=== PATIENT | female | born 1960 | race Caucasian/White ===

== ENCOUNTER → 2022-12-20 | Outpatient (CLI) | payer OTHER | END | disposition home or self-care (01) | LOC: SLP 20:49 | PROVIDERS: ATTEND Internal Medicine | DX: G47.33 Obstructive sleep apnea (adult) (pediatric) (principal) | CPT/HCPCS: 95810 ==

== ENCOUNTER → 2022-12-27 | Outpatient (CLI) | payer OTHER | END | disposition home or self-care (01) | LOC: SLP 20:41 | PROVIDERS: ATTEND Internal Medicine | DX: G47.33 Obstructive sleep apnea (adult) (pediatric) (principal) | CPT/HCPCS: 95811 ==

== ENCOUNTER → 2023-01-27 | Outpatient (CLI) | payer OTHER, MEDICARE | END | disposition home or self-care (01) | LOC: RAH 12:08 | PROVIDERS: ATTEND Internal Medicine | DX: I51.7 Cardiomegaly (principal); Z87.891 Personal history of nicotine dependence | CPT/HCPCS: 71046 ==

== ENCOUNTER → 2023-05-05 | Outpatient (CLI) | payer OTHER, MEDICARE | END | disposition home or self-care (01) | LOC: RAH 08:08 | PROVIDERS: ATTEND Internal Medicine | DX: N28.1 Cyst of kidney, acquired (principal); R19.01 Right upper quadrant abdominal swelling, mass and lump; Z90.49 Acquired absence of other specified parts of digestive tract | CPT/HCPCS: 76700 ==

== ENCOUNTER → 2023-05-18 | Outpatient (CLI) | payer OTHER | END | disposition home or self-care (01) | LOC: RAH 15:54 | PROVIDERS: ATTEND Internal Medicine Cardiovascular Disease | DX: Z13.6 Encounter for screening for cardiovascular disorders (principal) | CPT/HCPCS: 75571 ==

== ENCOUNTER 2023-06-09 08:58 | Day surgery (SDC) | payer OTHER, MEDICARE ==
[2023-06-06 14:14] LABS: BASOPHILS # (AUTO) 0.06 K/uL (0.00-0.20); BASOPHILS % (AUTO) 0.7 % (0.0-5.0); EOSINOPHILS # (AUTO) 0.35 K/uL (0.00-0.70); EOSINOPHILS % (AUTO) 3.9 % (0.0-8.0); HEMATOCRIT 41.5 % (36-48); IMMATURE GRANULOCYTE ABSOLUTE 0.02 K/uL (0-1); LYMPHOCYTES # (AUTO) 3.4 K/uL (1.0-4.8); LYMPHOCYTES % (AUTO) 38.8 % (21.0-51.0); MEAN CORPUSCULAR HEMOGLOBIN 30.9 pg (27.0-33.0); MEAN CORPUSCULAR HGB CONC 32.3 g/dL (32.0-36.0); MEAN CORPUSCULAR VOLUME 95.8 fL (79-99); MONOCYTES # (AUTO) 0.7 K/uL (0.1-1.0); MONOCYTES % (AUTO) 8.3 % (3.0-13.0); NEUTROPHILS # (AUTO) 4.3 K/uL (1.8-7.7); NEUTROPHILS % (AUTO) 48.1 % (40.0-77.0); PLATELET COUNT (AUTO) 232 K/uL (130-400); RED BLOOD CELL COUNT(AUTO) 4.33 MIL/uL (4.00-5.50); RED CELL DISTRIBUTION WIDTH 12.9 % (11.0-15.5); WHITE BLOOD COUNT (AUTO) 8.9 K/uL (4.8-10.8)
[2023-06-06 14:37] LABS: APPEARANCE,URINE CLOUDY (CLEAR); BILIRUBIN,URINE NEGATIVE (NEGATIVE); COLOR,URINE LIGHT-YELLOW (YELLOW); GLUCOSE, URINE (UA) NEGATIVE (NEGATIVE); KETONES,URINE NEGATIVE (NEGATIVE); LEUKOCYTE ESTERASE ,URINE 75 Leu/uL (NEGATIVE); NITRATE,URINE NEGATIVE (NEGATIVE); OCCULT BLOOD,URINE NEGATIVE (NEGATIVE); PH,URINE 5.5 (5.0-8.0); PROTEIN,URINE NEGATIVE (NEGATIVE); UROBILINOGEN,URINE 0.2 mg/dL (0.2-1.0)
[2023-06-06 14:40] LABS: ADD UA MICROSCOPIC YES
[2023-06-06 14:45] LABS: BACTERIA,URINE FEW /HPF (None Seen); MUCUS,URINE RARE LPF (None Seen); SQUAMOUS EPITHELIAL CELL,UR RARE /HPF (0-2); YEAST,URINE BUDDING RARE /HPF (None Seen)
[2023-06-09] VITALS (12 sets, daily range): BP systolic 94–159; BP diastolic 52–88; PULSE 68–79; RESP 15–20
[~2023-06-09] VITALS: Ht 165.1 cm; Wt 147.9 kg
[~2023-06-09 08:58] MED LIST: AEC81 PO; BOTULINUM TOXIN TYPE A 100 UNITS/VIAL INJ ONE; BUPR-49 PO; CALC-322 PO; ELDERBERRY PO; ESCI20TA38 PO; HYDR12.54 PO; LEVO125C4 PO; LOSA50TA64 PO; MV-M1TAB20 PO; MV-M1TAB57 PO; OXYB10TA30 PO; TRAZ-187 PO; UBID100C45 PO; VITAMIN B12 PO
[2023-06-09] MEDS ORDERED: LACTATED RINGERS 1000ML 1,000 ML IV ONE (09:45)
[2023-06-09] MEDS ORDERED: CEFTRIAXONE 1G VIAL ONE (09:45)
[2023-06-09] MEDS ORDERED: LIDOCAINE HCL 2% PF 20 ML JEL DISP.SYRIN MM ONE (11:07)
[2023-06-09] MEDS ORDERED: MIDAZOLAM HCL 1 MG/ML 2ML VIAL ONE ×2 (11:08→11:11)
[2023-06-09] MEDS ORDERED: FENTANYL CITRATE PF 50 MCG/1 ML 2ML VIAL ONE (11:08)
== END 2023-06-09 12:55 | disposition home or self-care (01) ==
LOC: DAH 08:58
PROVIDERS: ATTEND Urology
DX: N39.41 Urge incontinence (principal); I10 Essential (primary) hypertension; E66.01 Morbid (severe) obesity due to excess calories; E78.5 Hyperlipidemia, unspecified; I44.0 Atrioventricular block, first degree; Z68.43 Body mass index [BMI] 50.0-59.9, adult; Z98.890 Other specified postprocedural states; Z90.49 Acquired absence of other specified parts of digestive tract; Z98.891 History of uterine scar from previous surgery
CPT/HCPCS: 85025; 87077; 87088; 87186; 81001; 36415; 71045; 93005; 52287; 82948 ×2; A4663; J7030; C1758; J7120; J3010; J0696; J2250 ×2; J0585; A4358; A4215 ×2; A4223; A4222; A4221; A4600

== ENCOUNTER → 2023-07-14 | Outpatient (CLI) | payer OTHER ==
[~2023-07-14] MED LIST changes: -BOTULINUM TOXIN TYPE A 100 UNITS/VIAL INJ ONE
== END | disposition home or self-care (01) ==
LOC: DTH 10:23
PROVIDERS: ATTEND Surgery
DX: Z71.3 Dietary counseling and surveillance (principal); E66.01 Morbid (severe) obesity due to excess calories; I10 Essential (primary) hypertension; E78.00 Pure hypercholesterolemia, unspecified; M19.90 Unspecified osteoarthritis, unspecified site; K21.9 Gastro-esophageal reflux disease without esophagitis; G47.33 Obstructive sleep apnea (adult) (pediatric); Z68.43 Body mass index [BMI] 50.0-59.9, adult
CPT/HCPCS: 97803

== ENCOUNTER 2023-08-15 10:47 | Day surgery (SDC) | payer OTHER, MEDICARE ==
[~2023-08-15] VITALS: Ht 165.1 cm; Wt 149.2 kg
[2023-08-15] VITALS (9 sets, daily range): BP systolic 112–149; BP diastolic 62–89; PULSE 66–84; RESP 13–17
[~2023-08-15 10:47] MED LIST changes: -CALC-322 PO; +CALC-866 PO; -ELDERBERRY PO; -MV-M1TAB20 PO; -OXYB10TA30 PO; +ROSU5TAB12 PO; +VITA1CAP17 PO; -VITAMIN B12 PO
[2023-08-15] MEDS ORDERED: ONDANSETRON 4MG INJ ONE (11:45)
[2023-08-15] MEDS ORDERED: PROPOFOL 10 MG/ML 20ML VIAL IV ONE (11:45)
[2023-08-15] MEDS ORDERED: FENTANYL CITRATE PF 50 MCG/1 ML 2ML VIAL ONE (11:45)
[2023-08-15] MEDS ORDERED: LIDOCAINE HCL 1% 20 ML VIAL ONE (11:45)
== END 2023-08-15 14:24 | disposition home or self-care (01) ==
LOC: ENDO 10:47 → DAH 10:47 → ENDO 14:24
PROVIDERS: ATTEND Surgery
DX: K21.9 Gastro-esophageal reflux disease without esophagitis (principal); E66.01 Morbid (severe) obesity due to excess calories; I10 Essential (primary) hypertension; F41.9 Anxiety disorder, unspecified; F43.10 Post-traumatic stress disorder, unspecified; E03.9 Hypothyroidism, unspecified; Z90.49 Acquired absence of other specified parts of digestive tract; Z90.89 Acquired absence of other organs; Z98.891 History of uterine scar from previous surgery; Z80.9 Family history of malignant neoplasm, unspecified; Z82.49 Family history of ischemic heart disease and other diseases of the circulatory system; Z68.43 Body mass index [BMI] 50.0-59.9, adult; Z79.82 Long term (current) use of aspirin; Z79.890 Hormone replacement therapy; Z79.899 Other long term (current) drug therapy; Z98.890 Other specified postprocedural states
CPT/HCPCS: 43235; J3010; J2704; J2405; A4620; A4215; A4223; A7002; A4222; A4663; J7030; A4606; J3490

== ENCOUNTER 2024-06-03 17:39 | Observation (INO) | payer OTHER, MEDICARE ==
[~2024-06-03] VITALS: Ht 165.1 cm; Wt 158.6 kg
[~2024-06-03 17:39] MED LIST changes: -ROSU5TAB12 PO; +ROSU5TAB51 PO
[2024-06-03] MEDS: ondanSETRON 4MG INJ IVP ONE (18:54)
[2024-06-03] MEDS: morPHINE 2 MG SYG IVP ONE (18:56)
[2024-06-03 19:05] LABS: BASOPHILS # (AUTO) 0.03 K/uL (0.00-0.20); BASOPHILS % (AUTO) 0.4 % (0.0-5.0); EOSINOPHILS # (AUTO) 0.26 K/uL (0.00-0.70); EOSINOPHILS % (AUTO) 3.4 % (0.0-8.0); HEMATOCRIT 38.1 % (36-48); IMMATURE GRANULOCYTE ABSOLUTE 0.15 K/uL (0-1); LYMPHOCYTES # (AUTO) 1.5 K/uL (1.0-4.8); LYMPHOCYTES % (AUTO) 19.1 % (21.0-51.0); MEAN CORPUSCULAR HEMOGLOBIN 29.6 pg (27.0-33.0); MEAN CORPUSCULAR HGB CONC 32.5 g/dL (32.0-36.0); MEAN CORPUSCULAR VOLUME 90.9 fL (79-99); MONOCYTES # (AUTO) 0.7 K/uL (0.1-1.0); MONOCYTES % (AUTO) 9.1 % (3.0-13.0); NEUTROPHILS # (AUTO) 5.1 K/uL (1.8-7.7); PLATELET COUNT (AUTO) 207 K/uL (130-400); RED BLOOD CELL COUNT(AUTO) 4.19 MIL/uL (4.00-5.50); RED CELL DISTRIBUTION WIDTH 13.7 % (11.0-15.5); WHITE BLOOD COUNT (AUTO) 7.7 K/uL (4.8-10.8)
[2024-06-03 19:10] LABS: CREATININE 1.2 mg/dL (0.5-1.0); POTASSIUM 3.6 mmol/L (3.5-5.1)
--- NOTE | 2024-06-03 19:58 | ERN ---
General Chief Complaint: Knee Injury/Swelling Stated Complaint: RT KNEE PAIN Time Seen by MD: 17:59 Time Seen by Midlevel: 17:59 Source: patient History of Present Illness Initial Comments Patient is a morbidly obese 64-year-old female presenting to the emergency department with right knee pain. Patient states that approximately two days ago she twisted her knee while working on her yard. She normally ambulates without assistance however over the last two days after her twisting injury she has been needing to use her walker. Today she had an increase in pain and was no longer able to ambulate so she decided to call EMS for further evaluation. Allergies: Coded Allergies: sulfamethoxazole (Unverified Allergy, Unknown, 06/06/23) trimethoprim (Unverified Allergy, Unknown, 06/06/23) Home Meds Reported Medications Cholecalciferol (Vitamin D3) (Vitamin D3) 125 Mcg (5000 Unit) Tablet, 125 MCG PO BID, TAB 08/12/23 Vitamin B Complex & Vit C No.3 (B Complex with Vitamin C) 15-10-300 Capsule, 1 EACH PO DAILY, CAP 08/12/23 Rosuvastatin Calcium (Rosuvastatin Calcium) 5 Mg Tablet, 5 MG PO DAILY, TAB 08/12/23 Aspirin (ASPIRIN 81 MG ECTAB) 81 Mg Ectab, 81 MG PO DAILY, TAB.EC 06/08/23 Mv-Mn/Folic Acid/Calcium/Vit K (Women's 50 Plus Multivit Tab) 400 Mcg-500 Mg Calcium-20 Mcg Tablet, 1 EACH PO DAILY, TAB 06/08/23 Ubidecarenone (Co Q-10) 100 Mg Capsule, 200 MG PO BID, CAP 06/08/23 Trazodone HCl (Trazodone HCl) 100 Mg Tablet, 100 MG PO HS, TAB 06/08/23 Bupropion HCl (Bupropion Xl) 150 Mg Tab.er.24h, 150 MG PO DAILY, TAB 06/08/23 Levothyroxine Sodium (Levothyroxine) 125 Mcg Capsule, 187.5 MCG PO ACBKFST, CAP SAT/WED 06/08/23 Levothyroxine Sodium (Levothyroxine) 125 Mcg Capsule, 125 MCG PO ACBKFST, CAP MON/TUE/GERMAN/FRI/SUN 06/08/23 Losartan Potassium (Losartan Potassium) 50 Mg Tablet, 50 MG PO DAILY, TAB 06/08/23 Hydrochlorothiazide (Hydrochlorothiazide) 12.5 Mg Tablet, 12.5 MG PO DAILY, TAB 06/08/23 Escitalopram Oxalate (Escitalopram Oxalate) 20 Mg Tablet, 20 MG PO DAILY, TAB 06/08/23 Past Medical History Past Medical History: CAD, Hypertension Past Surgical History: Other ROS Dictation CONSTITUTIONAL: Negative except for HPI HEAD/FACE: Negative except for HPI EENT: Negative except for HPI RESPIRATORY: Negative except for HPI GASTROINTESTINAL/ABDOMINAL: Negative except for HPI GENITOURINARY: Negative except for HPI MUSCULOSKELETAL: Negative except for HPI INTEGUMENTARY: Negative except for HPI NEUROLOGICAL/PSYCH: Negative except for HPI HEMATOLOGIC/LYMPHATIC: Negative except for HPI All Systems Negative, Except as noted above. 13 point review of systems assessed and all negative except for above. Physical Exam Physical Exam Dictation Vital Signs reviewed General Appearance: Alert, oriented x 3, no acute distress, well developed, nourished. Morbidly Obese Head and Face: non-traumatic. Eyes: PERRL, pink conjunctivas, eyelid no trauma, anterior chamber with arcus senilis. Ears: Pinnas intact and no signs of trauma or erythema ear canals clear and no discharge TM no erythema Nose: No discharge, no bleeding. Oropharynx: Mouth normal, tongue pink, pharynx clear,no erythema, tonsils no exudates, no abscesses noted, mucous membrane moist Neck: Supple, non-tender, no thyromegaly, no masses, no JVD, no bruits Breast:Deferred Chest:No tenderness, no crepitus, no paradoxical movement, no retractions Lungs:Clear, well-ventilated, symmetric, no rales, no wheezing, no rhonchi, no stridor, good breath sounds bilaterally Heart: Regular rate, regular rhythm, no murmur, no gallops Vascular: no peripheral edema, Abdomen: Soft, positive bowel sounds, nondistended, no guarding, nontender, no rebound, no masses no hepatomegaly, no splenomegaly, no Wilks's sign, no hernias. Rectal: Deferred Genital: Deferred Neurological: Normal speech, motor function intact, sensory function intact Musculoskeletal: Neck nontender, full range of motion, back nontender, full range of motion, Extremities: Painful range of motion of the right knee, there was no overlying tenderness or signs of external trauma Skin: Color pink, dry, no turgor, no rash, no lacerations, no abrasions, no contusions. Lymphatic: Deferred Results Laboratory and Microbiology Lab and Micro Result Laboratory Tests Test 06/03/24 18:51 06/03/24 20:10 White Blood Count 7.7 K/uL (4.8-10.8) Red Blood Count 4.19 MIL/uL (4.00-5.50) Hemoglobin 12.4 g/dL (12.0-16.0) Hematocrit 38.1 % (36-48) Mean Corpuscular Volume 90.9 fL (79-99) Mean Corpuscular Hemoglobin 29.6 pg (27.0-33.0) Mean Corpuscular Hemoglobin Concent 32.5 g/dL (32.0-36.0) Red Cell Distribution Width 13.7 % (11.0-15.5) Platelet Count 207 K/uL (130-400) Mean Platelet Volume 9.7 fL (7.5-10.5) Immature Granulocyte % (Auto) 2.0 % (0-1) H Neutrophils (%) (Auto) 66.0 % (40.0-77.0) Lymphocytes (%) (Auto) 19.1 % (21.0-51.0) L Monocytes (%) (Auto) 9.1 % (3.0-13.0) Eosinophils (%) (Auto) 3.4 % (0.0-8.0) Basophils (%) (Auto) 0.4 % (0.0-5.0) Neutrophils # (Auto) 5.1 K/uL (1.8-7.7) Lymphocytes # (Auto) 1.5 K/uL (1.0-4.8) Monocytes # (Auto) 0.7 K/uL (0.1-1.0) Eosinophils # (Auto) 0.26 K/uL (0.00-0.70) Basophils # (Auto) 0.03 K/uL (0.00-0.20) Absolute Immature Granulocyte (auto 0.15 K/uL (0-1) Nucleated Red Blood Cells 0.0 % (0.0-0.19) Sodium Level 138 mmol/L (136-145) Potassium Level 3.6 mmol/L (3.5-5.1) Chloride Level 100 mmol/L (101-111) L Carbon Dioxide Level 37 mmol/L (21-32) H Blood Urea Nitrogen 19 mg/dL (7-18) H Creatinine 1.2 mg/dL (0.5-1.0) H Glomerular Filtration Rate Calc 50 mL/min (>90) Random Glucose 143 mg/dL (70-105) H Total Calcium 9.0 mg/dL (8.5-10.1) Urine Color YELLOW (YELLOW) Urine Appearance CLEAR (CLEAR) Urine pH 6.5 (5.0-8.0) Urine Specific [place] 1.020 (1.001-1.031) Urine Protein NEGATIVE mg/dL (NEGATIVE) Urine Glucose (UA) NEGATIVE mg/dL (NEGATIVE) Urine Ketones NEGATIVE mg/dL (NEGATIVE) Urine Occult Blood NEGATIVE (NEGATIVE) Urine Nitrate NEGATIVE (NEGATIVE) Urine Bilirubin NEGATIVE mg/dL (NEGATIVE) Urine Urobilinogen 0.2 mg/dL (0.2-1.0) Urine Leukocyte Esterase NEGATIVE Murtaza/uL Labs Reviewed?: Yes MDM MDM: Patient is a morbidly obese 64-year-old female presenting to the emergency department with right knee pain. Patient states that approximately two days ago she twisted her knee while working on her yard. She normally ambulates without assistance however over the last two days after her twisting injury she has been needing to use her walker. Today she had an increase in pain and was no longer able to ambulate so she decided to call EMS for further evaluation. On arrival she is in no acute distress but does have pain full range of motion of the right knee. We attempted to road test are multiple times in the emergency department but she was unable to ambulate. An x-ray of the right knee shows no acute fracture. Given the inability to walk patient will be admitted for possible physical therapy discussed with Dr. Valiente who agrees to admit the patient for further observation and management. She recommends obtaining a CT scan of the knee to rule out a hairline fracture. CT scan was ordered and patient will be admitted for further observation. Differential diagnosis: Internal knee injury, fracture, dislocation, intractable pain Rationale: Tests considered and ordered secondary to shared decision making include: Previous outside records reviewed: Old ER visits. Risk of complication and/or morbidity or mortality of patient management: None Medications-Per medication reconciliation Need for hospitalization: Patient does meet criteria for hospitalization. Need for emergency major/minor surgery: No There are no social concerns with this patient. Prescription drug management Prescriptions will include symptomatic care Patient's prior external medical records from other ER visits were reviewed by me as indicated. Prior testing and results from previous visits were reviewed. Prior tests were taken into account with medical decision making and resource utilization, independent historian/historians were used to obtain complete medical history. I independently interpreted the test that were performed, results were reviewed by me and considered findings on radiology if ordered. Medical management and examination interpretation discussions were had by me with other qualified healthcare professionals as indicated for the patient's care. ED Course Orders Procedure Category Date Status Time Knee 3vws Rt RAD 06/03/24 Resulted 18:18 Morphine 2mg Syg PHA 06/03/24 Complete (Morphine 2mg Syg) 18:30 Ondansetron 4mg Inj PHA 06/03/24 Complete (Zofran 4mg Inj) 18:30 Cbc With Differential LAB 06/03/24 Complete 18:32 Basic Metabolic Panel LAB 06/03/24 Complete 18:32 Ct Low Ext W/O CT 06/03/24 Resulted Contrast 19:42 Edm Admit Bridge Order ADM 06/03/24 Transmitted 19:42 Urinalysis Profile LAB 06/03/24 Complete 20:10 Current Medications Medications (Trade) Dose Ordered Sig/Tirso Route PRN Reason Start Time Stop Time Status Last Admin Dose Admin Morphine Sulfate (morPHINE 2MG SYG) 2 mg ONCE ONCE IVP 06/03/24 18:30 06/03/24 18:31 DC 06/03/24 18:58 Ondansetron HCl (zoFRAN 4MG INJ) 4 mg ONCE ONCE IVP 06/03/24 18:30 06/03/24 18:31 DC 06/03/24 18:54 Vital Signs Date Time Temp Pulse Resp B/P (MAP) Pulse Ox O2 Delivery O2 Flow Rate FiO2 06/03/24 18:16 97.9 74 16 134/68 98 Room Air* 0 21 06/03/24 17:46 98.6 72 20 113/78 99 Room Air DX & DISP Disposition: Inpatient Decision to Admit Date: Jun 03, 2024 Decision to Admit Time: 19:57 Departure Impression: Primary Impression: Intractable pain Additional Impressions: Unable to ambulate, Right medial tibial plateau fracture Condition: Stable Referrals: NEEMA VALIENTE MD (PCP) I have reviewed the case, and I agree with, Diagnosis and Plan I performed the substantive portion of the visit. I have reviewed and personally made and approve the management plan that is documented in the note by myself or the ROBI. I acknowledge for responsibility for the patient's management plan. WU BARRON Jun 03, 2024 19:58
[2024-06-03 20:22] LABS: APPEARANCE,URINE CLEAR (CLEAR); BILIRUBIN,URINE NEGATIVE (NEGATIVE); COLOR,URINE YELLOW (YELLOW); GLUCOSE, URINE (UA) NEGATIVE (NEGATIVE); KETONES,URINE NEGATIVE (NEGATIVE); LEUKOCYTE ESTERASE ,URINE NEGATIVE Leu/uL (NEGATIVE); NITRATE,URINE NEGATIVE (NEGATIVE); OCCULT BLOOD,URINE NEGATIVE (NEGATIVE); PH,URINE 6.5 (5.0-8.0); PROTEIN,URINE NEGATIVE (NEGATIVE); UROBILINOGEN,URINE 0.2 mg/dL (0.2-1.0)
--- NOTE | 2024-06-03 20:27 | HMCIMG ---
Exam Type: KNEE 3VWS RT Clinical Information: pain Comparison: None Findings: The bone examination is unremarkable. No fractures or dislocations are seen. No radiopaque foreign bodies are noted. Soft tissues are preserved. IMPRESSION: Normal examination.
[2024-06-03 20:53] LABS: ADD UA MICROSCOPIC NO
--- NOTE | 2024-06-03 21:52 | HMCIMG ---
Exam Type: CT LOW EXT W/O CONTRAST Clinical Information: right knee pain r/o hairline fracture Comparison: None Findings: Hairline fracture without displacement of the medial margin of the medial tibial plateau best seen on the sagittal sequence, series 7, image 75, annotated. Mild hemarthrosis. No other fractures are seen and there are no other gross abnormalities. IMPRESSION: Medial tibial plateau hairline fracture.
[2024-06-04] VITALS (9 sets, daily range): BP systolic 118–137; BP diastolic 60–69; PULSE 66–71; RESP 20–21; TEMP 97.8–98.3; O2SAT 92–95
[2024-06-04] MEDS ORDERED: ALBU18HF7 IH (02:27)
[2024-06-04] MEDS ORDERED: LEVO-70 PO (02:27)
[2024-06-04] MEDS ORDERED: ROSU10TA72 PO (02:27)
[2024-06-04] MEDS ORDERED: ISOS30TA92 PO (02:27)
--- NOTE | 2024-06-04 09:51 | NUR ---
SPOKE TO DR WATTS IN REGARDS TO CONSULT. PER DR WATTS OK TO GIVE CASE TO DR JAMIL. DR JAMIL NOTIFIED ON NEW CONSULT. PER DR JAMIL PATIENT TO REMAIN ON BED REST AND HE WILL SEE PATIENT THIS AFTERNOON
--- NOTE | 2024-06-04 13:20 | HP ---
HISTORY AND PHYSICAL Date of Visit: Jun 04, 2024 Time of Visit: 13:13 ADMISSION DATE: Jun 03, 2024 at 19:42 CC: RIGHT KNEE PAIN HPI: This is a morbidly obese 64-year-old woman presenting to the emergency department with right knee pain. Patient states that approximately two days ago she twisted her knee while working on her yard. She normally ambulates without assistance however over the last two days after her twisting injury she has been needing to use her walker. Today she had an increase in pain and was no longer able to ambulate so she decided to call EMS for further evaluation. PAST MEDICAL HISTORY: HTN WITH CKD 3A CKD 3A MORBID OBESITY/ BMI 58 HYPOTHYROID MIXED LIPIDS MAJOR DEPRESSION SINGLE MODERATE / MATILDA SEDATIVE DEPENDENCE MIXED URIN INCONTINENCE IBS WITH DIARRHEA OA, GENERALIZED EX SMOKER ATHEROSCLEROSIS OF [place] ARTERIES OF EXTREMITIES, BRANNON LEGS S/P C SECTIONS (3) S/P CHOLECYSTECTOMY S/P TONSILLECTOMY SOCIAL HISTORY: LIVES LOCALLY FAMILY HISTORY: + HTN CVD ^ Patient History: Carcinomas FATHER, Cardiovascular disease MOTHER, Hypertension MOTHER, Allergies: Coded Allergies: sulfamethoxazole (Unverified Allergy, Unknown, 06/06/23) trimethoprim (Unverified Allergy, Unknown, 06/06/23) Scheduled Bupropion HCl (Bupropion Xl), 150 MG PO DAILY, (Reported) Cholecalciferol (Vitamin D3) (Vitamin D3), 125 MCG PO BID, (Reported) Escitalopram Oxalate (Escitalopram Oxalate), 20 MG PO DAILY, (Reported) Hydrochlorothiazide (Hydrochlorothiazide), 12.5 MG PO DAILY, (Reported) Isosorbide Mononitrate (Isosorbide Mononitrate ER), 0.5 TAB PO DAILY, (Reported) Levothyroxine Sodium (Levothyroxine), 125 MCG PO ACBKFST, (Reported) Levothyroxine Sodium (Levothyroxine), 187.5 MCG PO ACBKFST, (Reported) Losartan Potassium (Losartan Potassium), 50 MG PO DAILY, (Reported) Rosuvastatin Calcium (Rosuvastatin Calcium), 10 MG PO DAILY, (Reported) Trazodone HCl (Trazodone HCl), 100 MG PO HS, (Reported) Ubidecarenone (Co Q-10), 200 MG PO BID, (Reported) Vitamin B Complex & Vit C No.3 (B Complex with Vitamin C), 1 EACH PO DAILY, (Reported) Scheduled PRN Albuterol Sulfate (Ventolin Hfa), 2 PUFF IH Q4HPRN PRN for wheezing, (Reported) Discontinued Medications Aspirin (Aspirin 81 Mg Ectab), 81 MG PO DAILY, (Reported) Rosuvastatin Calcium (Rosuvastatin Calcium), 5 MG PO DAILY, (Reported) Discontinued Reason: Prescription changed Review of Systems Normal Constitutional:, Normal Eyes:, Normal Ear/Nose/Mouth/Throat, Normal Cardiovascular:, Normal Respiratory:, Normal Gastrointestinal:, Normal [place] urinary:, Normal Integumentary:, Normal Neurological:, Normal Psychological:, Normal Endocrine:, Normal Hematologic/Lymphatic:, Normal Allergic/Immunologic:; Abnormal Musculoskeletal: (REFER TO HPI) Physical Exam Vital Signs Vital Signs Date Time Temp Pulse Resp B/P (MAP) Pulse Ox O2 Delivery O2 Flow Rate FiO2 06/03/24 17:46 98.6 72 20 113/78 99 Room Air 06/03/24 18:16 0 21 Diagnostics Laboratory Tests Test 06/03/24 18:51 06/03/24 20:10 Range/Units White Blood Count 7.7 4.8-10.8 K/uL Red Blood Count 4.19 4.00-5.50 MIL/uL Hemoglobin 12.4 12.0-16.0 g/dL Hematocrit 38.1 36-48 % Mean Corpuscular Volume 90.9 79-99 fL Mean Corpuscular Hemoglobin 29.6 27.0-33.0 pg Mean Corpuscular Hemoglobin Concent 32.5 32.0-36.0 g/dL Red Cell Distribution Width 13.7 11.0-15.5 % Platelet Count 207 130-400 K/uL Mean Platelet Volume 9.7 7.5-10.5 fL Immature Granulocyte % (Auto) 2.0 0-1 % Neutrophils (%) (Auto) 66.0 40.0-77.0 % Lymphocytes (%) (Auto) 19.1 21.0-51.0 % Monocytes (%) (Auto) 9.1 3.0-13.0 % Eosinophils (%) (Auto) 3.4 0.0-8.0 % Basophils (%) (Auto) 0.4 0.0-5.0 % Neutrophils # (Auto) 5.1 1.8-7.7 K/uL Lymphocytes # (Auto) 1.5 1.0-4.8 K/uL Monocytes # (Auto) 0.7 0.1-1.0 K/uL Eosinophils # (Auto) 0.26 0.00-0.70 K/uL Basophils # (Auto) 0.03 0.00-0.20 K/uL Absolute Immature Granulocyte (auto 0.15 0-1 K/uL Nucleated Red Blood Cells 0.0 0.0-0.19 % Sodium Level 138 136-145 mmol/L Potassium Level 3.6 3.5-5.1 mmol/L Chloride Level 100 101-111 mmol/L Carbon Dioxide Level 37 21-32 mmol/L Blood Urea Nitrogen 19 7-18 mg/dL Creatinine 1.2 0.5-1.0 mg/dL Glomerular Filtration Rate Calc 50 >90 mL/min Random Glucose 143 70-105 mg/dL Total Calcium 9.0 8.5-10.1 mg/dL Urine Color YELLOW YELLOW Urine Appearance CLEAR CLEAR Urine pH 6.5 5.0-8.0 Urine Specific [place] 1.020 1.001-1.031 Urine Protein NEGATIVE NEGATIVE mg/dL Urine Glucose (UA) NEGATIVE NEGATIVE mg/dL Urine Ketones NEGATIVE NEGATIVE mg/dL Urine Occult Blood NEGATIVE NEGATIVE Urine Nitrate NEGATIVE NEGATIVE Urine Bilirubin NEGATIVE NEGATIVE mg/dL Urine Urobilinogen 0.2 0.2-1.0 mg/dL Urine Leukocyte Esterase NEGATIVE NEGATIVE Murtaza/uL Assessment/Plan Assessment/Plan RADIOLOGY Exam Type: KNEE 3VWS RT Findings: The bone examination is unremarkable. No fractures or dislocations are seen. No radiopaque foreign bodies are noted. Soft tissues are preserved. IMPRESSION: Normal examination. LOW EXT WO - CT LOW EXT W/O CONTRAST Findings: Hairline fracture without displacement of the medial margin of the medial tibial plateau best seen on the sagittal sequence, series 7, image 75, annotated. Mild hemarthrosis. No other fractures are seen and there are no other gross abnormalities. IMPRESSION: Medial tibial plateau hairline fracture. ASSESSMENT: THIS IS A 64 YR OLD WOMAN WITH HISTORY OF HTN WITH CKD 3A CKD 3A MORBID OBESITY/ BMI 58 HYPOTHYROID MIXED LIPIDS MAJOR DEPRESSION SINGLE MODERATE / MATILDA SEDATIVE DEPENDENCE MIXED URIN INCONTINENCE IBS WITH DIARRHEA OA, GENERALIZED EX SMOKER ATHEROSCLEROSIS OF [place] ARTERIES OF EXTREMITIES, BRANNON LEGS S/P C SECTIONS (3) S/P CHOLECYSTECTOMY S/P TONSILLECTOMY SHE PRESENTED WITH INTRACTABLE R KNEE AND LEG PAIN PLAN: PATIENT ADMITTED FOR BETTER PAIN CONTROL AND REHAB TOLERATED SHE LIVES ALONE AND HAS NOT BEEN ABLE TO CARE FOR HERSELF CT WITH SUGGESTION OF HAIRLINE FRACTURE IN MEDIAL PLATEAU CONT ANALGESICS PRN WITH ANTI EMETICS PRN ORTHO CONSULT AND FU MRI OF KNEE PENDING LOVENOX FOR DVT PROPHYLAXIS BED REST FOR NOW AND P.T. TO EVALUATE AND TREAT AFTER MRI DEPENDING ON RESULTS CASE MANAGEMENT CONSULTED B/C PATIENT REQUESTING SNF PLACEMENT UNTIL SHE CAN GET AROUND BETTER WITH BETTER PAIN CONTROL NEEMA MIDDLETON MD Jun 04, 2024 13:20
[2024-06-04] MEDS: 0.9%NACL 1000ML 1,000 ML IV SCH (13:30)
[2024-06-04] MEDS ORDERED: (Albuterol Sulfate (Ventolin Hfa) 2 PUFF) IH PRN (13:30)
[2024-06-04] MEDS ORDERED: LACTULOSE 20 GM/30 ML UDCUP PO PRN (13:30)
[2024-06-04] MEDS ORDERED: morPHINE 2 MG SYG IV PRN (13:30)
[2024-06-04] MEDS ORDERED: MAG/ALUM/SIMETH 30 ML UDCUP PO PRN (13:30)
[2024-06-04] MEDS ORDERED: ondanSETRON 4MG INJ IV PRN (13:30)
[2024-06-04] MEDS ORDERED: acetaMINOPHEN 325 MG TAB PO PRN (13:30)
--- NOTE | 2024-06-04 15:00 | NUR ---
Order noted and reviewed chart. Will await for orthopedic consult (Dr Burciaga) and any restrictions. PT team to follow.
--- NOTE | 2024-06-04 18:24 | CONS ---
CONSULT NOTE: REQUESTING PHYSICIAN: Dr France Valiente REASON FOR CONSULT: Right knee pain HISTORY OF PRESENT ILLNESS: This is a 64-year-old female with history of a twisting injury when she was walking on uneven terrain developing severe pain to the right knee and inability to ambulate. She was admitted by Dr. Valiente for further workup. A CT scan of the right knee in reported the presence of a small linear fracture of the medial tibial plateau. Reason why we were consulted PAST MEDICAL HISTORY: Morbid obesity, hypertension, chronic kidney disease type 3, hypothyroidism, mixed hyperlipidemia, major depression, IBS with diarrhea, mixed urinary incontinence. PAST SURGICAL HISTORY: x3, cholecystectomy, tonsillectomy ALLERGIES: Sulfa drugs SOCIAL HISTORY: Negative for of tobacco but she has an ex-smoker, FAMILY HISTORY: Positive for hypertension, coronary artery disease, REVIEW OF SYSTEMS: Denies fever or chills PHYSICAL EXAMINATION: Alert oriented x3 in no apparent distress, lying recumbent in bed. The patient has been placed NPO for possible surgery. Musculoskeletal assessment revealed the right knee with no effusion edema or erythema but is difficult to assess because of the size of the leg. Patient has limited flexion to about 60. Negative drawers, no laxity with valgus or varus stress, diffuse tenderness to palpation in the medial and anterior joint lines. There is no bruises. RADIOLOGIC STUDIES: X-rays of the right knee reveal normal bone density, alignment, no fractures or dislocations. CT scan of the right knee in my opinion reveals no abnormalities, radiologist's opinion the patient has a linear fracture of the medial tibial plateau and open my review I see that there is a small linear defect in the articular surface of the lateral tibial plateau which could also be a normal finding, no signs of obvious fractures or dislocations. MRI of the right knee that I ordered earlier to assess the joint reveals no fractures or dislocations, questionable medial meniscal tear. ASSESSMENT: Acute right knee pain secondary to knee sprain. Possible medial meniscal tear. Fracture ruled out PLAN: Recommend for the patient to be treated symptomatically. First we need physical therapy to with her up and walking, full weight-bearing as tolerated with the use of the walker for support. The patient lives alone and would be ideal to refer her to a nursing rehab for a short period of time. I would like to follow her at my office in two weeks for re-evaluation. Thank you very much for this consultation AMARI JAMIL MD Jun 04, 2024 18:24
--- NOTE | 2024-06-04 20:00 | HMCIMG ---
MR KNEE RIGHT WO REASON: R/O FRACTURE COMPARISON: None TECHNIQUE: Routine knee imaging protocol was performed in the sagittal, axial and coronal plane. FINDINGS: There is a complex tear posterior horn of the medial meniscus. There is attenuation of the free margin of the medial portion of the medial meniscus consistent with degenerative change. Lateral meniscus appears intact. There is edema in the medial collateral ligament consistent with a partial tear. There is also a moderate to large joint effusion. Lateral collateral ligament appears intact as does the posterior cruciate ligament. The anterior cruciate ligament is less well visualized, the proximal portion appears thickened with increased signal and may be partially torn. There are no focal osseous lesions. Quadriceps and patellar tendons appear intact. There is no evidence of fracture. IMPRESSION: 1. Probable tear posterior horn medial meniscus. 2. Moderate to large joint effusion. 3. There may be a partial tear of the proximal portion of the anterior cruciate ligament as well.
[2024-06-04] MEDS: trAZOdone HCL 100 MG TABLET PO SCH (22:20)
[2024-06-04] MEDS: atorVAStatin 20 MG TABLET PO SCH (22:20)
[2024-06-04] MEDS: acetaMINOPHEN 325 MG TAB PO PRN (22:20)
[2024-06-05] VITALS (7 sets, daily range): BP systolic 119–153; BP diastolic 58–85; PULSE 61–71; RESP 17–19; TEMP 97.3–98.7; O2SAT 94–97
[2024-06-05] MEDS: levoTHYROxine 125 MCG TABLET PO SCH (06:28)
[2024-06-05] MEDS ORDERED: LEVOTHYROXINE SODIUM PO SCH (07:30)
[2024-06-05] MEDS: BUPROPION HCL 150 MG PO SCH (09:00)
[2024-06-05] MEDS: (Escitalopram Oxalate 20 MG) PO SCH (09:00)
--- NOTE | 2024-06-05 09:04 | HMCIMG ---
MR TIBFIB RIGHT WO REASON: R/O FRACTURE COMPARISON: None TECHNIQUE: Routine imaging protocol was performed from the right knee joint line through the tibiotalar joint. Exam was performed without IV contrast. FINDINGS: There is normal-appearing osseous marrow of the tibia and fibula. There are no visible fractures. There is a knee joint effusion better seen on the MRI knee exam. Muscles and soft tissues of the calf appear normal. Subcutaneous soft tissues are unremarkable. IMPRESSION: 1. Knee joint effusion. 2. Otherwise unremarkable MRI of the right tibia and fibula.
[2024-06-05] MEDS: hydroCHLOROthiazide 25 MG TABLET PO SCH (09:31)
[2024-06-05] MEDS: LoSARTan 50 MG TABLET PO SCH (09:31)
[2024-06-05] MEDS: ENOXAPARIN SODIUM 40 MG/0.4 ML SYRINGE SQ SCH (09:31)
[2024-06-05] MEDS: ISOSORBIDE MONO 30MG SR TAB PO SCH (09:32)
[2024-06-05] MEDS: PANTOPrazole 40 MG TAB DR PO SCH (09:32)
[2024-06-05] MEDS: acetaMINOPHEN WITH coDEINE 1 TAB TAB PO PRN ×2 (12:22→18:17)
[2024-06-05] MEDS ORDERED: SENNOSIDES 8.6 MG TABLET PO PRN (13:00)
--- NOTE | 2024-06-05 14:24 | NUR ---
DCP CM MET WITH PT INITIAL ASSESSMENT DONE. PT IS INDEPENDENT PRIOR TO ADMISSION, LIVES AT HOME ALONE. DENIES ANY EQUIPMENT/SERVICES USES [facility] IN [place] FOR MEDS OR [facility]. FEELS SAFE TO GO BACK HOME, ARRANGES OWN NEEDS AND STILL DRIVE. DISCUSSED MD RECOMMENDATIONS FOR SHORT TERM REHAB, GIVEN IN NETWORK FACILITIES, [facility] AGREE[facility] FOR [facility], CONSENT SIGNED RATNA. DCP SNF ONCE APPROVED. CM SENT ORDER, CLINICALS, PASRR TO [facility] VIA SECURE FAX AND EMAIL, CONFIRMATION RECEIVED. CM SPOKE TO [facility], MADE AWARE PT PENDING PT EVAL, WILL SEND NOTES ONCE AVAILABLE, REP WILL COME EVALUATE PT, AWARE DCP ONCE APPROVED. PT PENDING APPROVAL AND ACCEPTANCE. PRIMARY NURSE KAYLI MADE AWARE. DR MIDDLETON UPDATED. CM TO CONTINUE TO FOLLOW UP. Addendum: 06/05/24 at 1429 by DEON SOLIS LVN CM Amended: Links added.
--- NOTE | 2024-06-05 21:57 | PN ---
Subjective Review of Systems PROGRESS NOTE Date of Visit: Jun 05, 2024 Time of Visit: 21:57 Events since last encounter CONTINUES TO COMPLAIN OF R KNEE PAIN Subjective NO PROBLEMS OVERNIGHT BUT HAS NOT STARTED TO AMBULATE YET General: No Fever, No Chills, No Night Sweats, No Fatigue, No Malaise, No Appetite; Other (MORBID OBESTIY) HEENT: No Head Aches, No Visual Changes, No Eye Pain, No Ear Pain, No Dysphasia, No Sinus Congestion, No Post Nasal Drip, No Sore Throat, No Other Pulmonary: No Dyspnea, No Cough, No Pleuritic Chest Pain, No Other Cardiovascular: No: Chest Pain, Palpitations, Orthopnea, Paroxysmal Noc. Dyspnea, Edema, Lt Headedness, Other Gastrointestinal: No: Nausea, Vomiting, Abdominal Pain, Diarrhea, Constipation, Melena, Hematochezia, Other Genitourinary: No Dysuria, No Frequency, No Incontinence, No Hematuria, No Retention, No Other Musculoskeletal: other (RIGHT KNEE PAIN), leg pain (RIGHT); No: neck pain, shoulder pain, arm pain, back pain, hand pain, foot pain Skin: No Urticaria, No Rash, No Other Neurological: No: Weakness, Numbness, Incoordination, Change in speech, Confusion, Seizures, Other Objective Vitals and I/O Vital Sign (Last 24 Hours) 06/05/24 06/05/24 06/05/24 08:00 16:00 19:56 Temp 98.2 Pulse 65 Resp 19 B/P (MAP) 119/58 Pulse Ox 967 O2 Delivery Room Air O2 Flow Rate 0.0 FiO2 21 Intake & Output (last 24hrs) 06/04/24 06/04/24 06/05/24 15:00 23:00 07:00 Intake Total 250 ml 1200 ml Output Total 4 ml Balance 250 ml 1196 ml Results RADIOLOGY: [] EKG: [] Medications Current Medications Morphine Sulfate 2 mg ONCE ONCE IVP Last administered on 06/03/24at 18:58; Start 06/03/24 at 18:30; Stop 06/03/24 at 18:31; Status DC Ondansetron HCl 4 mg ONCE ONCE IVP Last administered on 06/03/24at 18:54; Start 06/03/24 at 18:30; Stop 06/03/24 at 18:31; Status DC Acetaminophen 650 mg Q6H PRN PO; Start 06/04/24 at 13:30; Stop 07/04/24 at 13:29 Acetaminophen 650 mg Q4H PRN PO Last administered on 06/04/24at 22:20; Start 06/04/24 at 13:30; Stop 07/04/24 at 13:29 Ondansetron HCl 4 mg Q6H PRN IV; Start 06/04/24 at 13:30; Stop 07/04/24 at 13:29 Al Hydroxide/Mg Hydroxide 30 ml Q6H PRN PO; Start 06/04/24 at 13:30; Stop 07/04/24 at 13:29 Lactulose 20 gm BID PRN PO; Start 06/04/24 at 13:30; Stop 07/04/24 at 13:29 Enoxaparin Sodium 40 mg DAILY SQ Last administered on 06/05/24at 09:31; Start 06/05/24 at 09:00; Stop 07/05/24 at 08:59 Morphine Sulfate 2 mg Q4H PRN IV; Start 06/04/24 at 13:30; Stop 06/11/24 at 13:29 Sodium Chloride 1,000 ml @ 100 mls/hr Q10H IV Last administered on 06/05/24at 04:50; Start 06/04/24 at 13:30; Stop 06/05/24 at 12:42; Status DC Acetaminophen/ Codeine Phosphate 1 tab Q6H PRN PO Last administered on 06/05/24at 12:22; Start 06/04/24 at 13:30; Stop 06/05/24 at 12:45; Status DC Isosorbide Mononitrate 15 mg DAILY PO Last administered on 06/05/24at 09:32; Start 06/05/24 at 09:00; Stop 07/05/24 at 08:59 Losartan Potassium 50 mg DAILY PO Last administered on 06/05/24at 09:31; Start 06/05/24 at 09:00; Stop 07/05/24 at 08:59 Trazodone HCl 100 mg HS PO Last administered on 06/05/24at 20:54; Start 06/04/24 at 21:00; Stop 07/04/24 at 20:59 Home Med (Albuterol Sulfate (Bryce... Q4HPRN PRN IH; Start 06/04/24 at 13:30; Stop 07/04/24 at 13:29 Home Med (Bupropion HCl (Buprop... DAILY PO; Start 06/05/24 at 09:00; Stop 07/05/24 at 08:59 Home Med (Escitalopram Oxalate 20 MG) DAILY PO; Start 06/05/24 at 09:00; Stop 07/05/24 at 08:59 Hydrochlorothiazide 12.5 mg DAILY PO Last administered on 06/05/24at 09:31; Start 06/05/24 at 09:00; Stop 07/05/24 at 08:59 Levothyroxine Sodium 125 mcg SYN PO Last administered on 06/05/24at 06:28; Start 06/05/24 at 06:30; Stop 07/05/24 at 06:29 Miscellaneous Medication 187.5 mcg ACBKFST PO; Start 06/05/24 at 07:30; Stop 06/04/24 at 13:24; Status DC Atorvastatin Calcium 20 mg HS PO Last administered on 06/05/24at 20:53; Start 06/04/24 at 21:00; Stop 07/04/24 at 20:59 Pantoprazole Sodium 40 mg DAILY PO Last administered on 06/05/24at 09:32; Start 06/05/24 at 09:00; Stop 07/05/24 at 08:59 Acetaminophen/ Codeine Phosphate 2 tab Q6H PRN PO Last administered on 06/05/24at 18:17; Start 06/05/24 at 13:30; Stop 07/05/24 at 13:29 Polyethylene Glycol 17 gm DAILY PO; Start 06/06/24 at 09:00; Stop 07/06/24 at 08:59 Sennosides 2 tab BID PRN PO; Start 06/05/24 at 13:00; Stop 07/05/24 at 12:59 Assessment/Plan RADIOLOGY Exam Type: KNEE 3VWS RT Findings: The bone examination is unremarkable. No fractures or dislocations are seen. No radiopaque foreign bodies are noted. Soft tissues are preserved. IMPRESSION: Normal examination. LOW EXT WO - CT LOW EXT W/O CONTRAST Findings: Hairline fracture without displacement of the medial margin of the medial tibial plateau best seen on the sagittal sequence, series 7, image 75, annotated. Mild hemarthrosis. No other fractures are seen and there are no other gross abnormalities. IMPRESSION: Medial tibial plateau hairline fracture. MR KNEE RIGHT WO FINDINGS: There is a complex tear posterior horn of the medial meniscus. There is attenuation of the free margin of the medial portion of the medial meniscus consistent with degenerative change. Lateral meniscus appears intact. There is edema in the medial collateral ligament consistent with a partial tear. There is also a moderate to large joint effusion. Lateral collateral ligament appears intact as does the posterior cruciate ligament. The anterior cruciate ligament is less well visualized, the proximal portion appears thickened with increased signal and may be partially torn. There are no focal osseous lesions. Quadriceps and patellar tendons appear intact. There is no evidence of fracture. IMPRESSION: 1. Probable tear posterior horn medial meniscus. 2. Moderate to large joint effusion. 3. There may be a partial tear of the proximal portion of the anterior cruciate ligament as well. ASSESSMENT: THIS IS A 64 YR OLD WOMAN WITH HISTORY OF HTN WITH CKD 3A CKD 3A MORBID OBESITY/ BMI 58 HYPOTHYROID MIXED LIPIDS MAJOR DEPRESSION SINGLE MODERATE / MATILDA SEDATIVE DEPENDENCE MIXED URIN INCONTINENCE IBS WITH DIARRHEA OA, GENERALIZED EX SMOKER ATHEROSCLEROSIS OF [place] ARTERIES OF EXTREMITIES, BRANNON LEGS S/P C SECTIONS (3) S/P CHOLECYSTECTOMY S/P TONSILLECTOMY SHE PRESENTED WITH INTRACTABLE R KNEE AND LEG PAIN RIGHT POST MEDIAL MENISCAL TEAR AND ANTERIOR CRUCIATE LIGAMENT TEAR PER MRI PLAN: DISCUSSED RESULTS WITH PATIENT BEGIN AMBULATION WITH P.T. CONT ADJUST ANALGESICS NEEDED LOVENOX FOR DVT PROPHYLAXIS CASE MANAGEMENT WORKING ON D/C PLANNING TO SNF FOR REHAB NEEMA MIDDLETON MD Jun 05, 2024 21:57
[2024-06-06 04:36] VITALS: BP 160/88; PULSE 97; RESP 20; TEMP 97.6
[2024-06-06 07:20] VITALS: BP 128/78; PULSE 82; RESP 20; TEMP 98.9
[2024-06-06 08:00] VITALS: O2SAT 95
[2024-06-06] MEDS: polyETHYLene GLYCol 3350 17 GM POWD.PACK PO SCH (08:46)
[2024-06-06 11:30] VITALS: BP 127/78; PULSE 70; RESP 20; TEMP 97.5
[2024-06-06] MEDS ORDERED: LEVO125C4 PO (13:06)
[2024-06-06] MEDS ORDERED: ACET-2079 PO (13:06)
--- NOTE | 2024-06-06 13:27 | NUR ---
CM NOTE: [facility] APPROVAL CM SPOKE TO KAROL W/[facility], PT HAS APPROVAL, REP AWARE PT WILL NEED FACILITY VAN FOR TRANSFER. PRIMARY NURSE KAYLI MADE AWARE. DR EMI DE LEON MD WILL ENTER DC ORDER AND DO MED RECON. CM TO CONTINUE TO FOLLOW UP. Addendum: 06/06/24 at 1328 by DEON SOLIS LVN CM Amended: Links added.
--- NOTE | 2024-06-06 14:04 | DS ---
DISCHARGE SUMMARY Date of Visit: Jun 06, 2024 Time of Visit: 14:04 ADMISSION DATE: Jun 03, 2024 at 19:42 DISCHARGE DATE: Jun 06, 2024 ATTENDED PHYSICIAN: Neema Valiente MD DISCHARGE DIAGNOSIS: S/P R KNEE INJURY INTRACTABLE R KNEE AND LEG PAIN RIGHT POST MEDIAL MENISCAL TEAR AND ANTERIOR CRUCIATE LIGAMENT TEAR PER MRI HTN WITH CKD 3A CKD 3A MORBID OBESITY/ BMI 58 HYPOTHYROID MIXED LIPIDS MAJOR DEPRESSION SINGLE MODERATE / MATILDA SEDATIVE DEPENDENCE MIXED URIN INCONTINENCE IBS WITH DIARRHEA OA, GENERALIZED EX SMOKER ATHEROSCLEROSIS OF [place] ARTERIES OF EXTREMITIES, BRANNON LEGS S/P C SECTIONS (3) S/P CHOLECYSTECTOMY S/P TONSILLECTOMY QUALIFIED CRAFT WORKER ELECTRICIAN(S): DR JAMIL - ORTHOPEDICS PROCEDURES: NONE RADIOLOGY: XRAY KNEE 3VWS RT Findings: The bone examination is unremarkable. No fractures or dislocations are seen. No radiopaque foreign bodies are noted. Soft tissues are preserved. IMPRESSION: Normal examination. LOW EXT WO - CT LOW EXT W/O CONTRAST Findings: Hairline fracture without displacement of the medial margin of the medial tibial plateau best seen on the sagittal sequence, series 7, image 75, annotated. Mild hemarthrosis. No other fractures are seen and there are no other gross abnormalities. IMPRESSION: Medial tibial plateau hairline fracture. MR KNEE RIGHT WO FINDINGS: There is a complex tear posterior horn of the medial meniscus. There is attenuation of the free margin of the medial portion of the medial meniscus consistent with degenerative change. Lateral meniscus appears intact. There is edema in the medial collateral ligament consistent with a partial tear. There is also a moderate to large joint effusion. Lateral collateral ligament appears intact as does the posterior cruciate ligament. The anterior cruciate ligament is less well visualized, the proximal portion appears thickened with increased signal and may be partially torn. There are no focal osseous lesions. Quadriceps and patellar tendons appear intact. There is no evidence of fracture. IMPRESSION: 1. Probable tear posterior horn medial meniscus. 2. Moderate to large joint effusion. 3. There may be a partial tear of the proximal portion of the anterior cruciate ligament as well. MR TIBFIB RIGHT WO FINDINGS: There is normal-appearing osseous marrow of the tibia and fibula. There are no visible fractures. There is a knee joint effusion better seen on the MRI knee exam. Muscles and soft tissues of the calf appear normal. Subcutaneous soft tissues are unremarkable. IMPRESSION: 1. Knee joint effusion. 2. Otherwise unremarkable MRI of the right tibia and fibula. HOSPITAL COURSE: THIS IS A 64 YR OLD WOMAN WITH THE ABOVE PAST MEDICAL HISTORY WHO PRESENTED AFTER IN INJURY HER HER RIGHT KNEE. APPARENTLY SHE WAS WALKING AND TRIPPED BUT DID NOT FALL TO THE GROUND INJURING HER KNEE AND THEN DEVELOPED SEVERE INTRACTABLE PAIN TO THE RIGHT KNEE AND LEG. SHE PRESENTED TO THE ED AND XRAYS WERE UNREMARKABLE SO A CT WAS ORDERED WITH POSSIBLE HAIRLINE FRACTURE NOTED. DR JAMIL IN ORTHOPEDICS EVALUATED THE PATIENT AND DID NOT AGREE WITH THE FINDINGS AND A FOLLOW UP MRI OF THE KNEE AND TIB / FIB WAS DONE THAT SHOWED A RIGHT POST MEDIAL MENISCAL TEAR AND ANTERIOR CRUCIATE LIGAMENT TEAR. SHE HAD HER PAIN MANAGED WITH ANALGESICS AND WORKED WITH P.T. AND REQUESTED CONSIDERATION OF SNF FOR REHAB SINCE SHE LIVES ALONE AND NOT ABLE TO GET UP AND DOWN HER STAIRS IN IN HER HOME WHERE SHE HAS HER SHOWER. CASE MANAGEMENT HELPED WITH DISPOSITION AND WHEN ACCEPTED WAS RELEASED TO [facility]. DIET: HEART HEALTHY ACTIVITY: PROGRESSIVE AMBULATION WITH P.T. CONDITION: STABLE EQUIPMENT: NONE FOLLOW UP APPOINTMENT(S): DR VALIENTE WILL ROUND AT FACILITY DISPOSITION: [facility] CODE STATUS: FULL MEDICATION RECONCILIATION : RESUME PREVIOUS HOME MEDICATION ADDED TYLENOL WITH CODEINE 1-2 PO Q 6 HRS PRN PAIN ^ Home Meds Active Scripts Acetaminophen with Codeine (Acetaminophen-Cod #3 Tablet) 300 Mg-30 Mg Tablet, 2 TAB PO Q6H PRN for MODERATE PAIN (4-6), #30 TAB Prov:NEEMA VALIENTE MD 06/06/24 Levothyroxine Sodium (Levothyroxine) 125 Mcg Capsule, 125 MCG PO ACBKFST for 30 Days, #30 CAP 1 Refill Prov:NEEMA VALIENTE MD 06/06/24 Reported Medications Albuterol Sulfate (Ventolin Hfa) 90 Mcg Hfa.aer.ad, 2 PUFF IH Q4HPRN PRN for wheezing for 30 Days, #18 GM 0 Refills 06/04/24 Isosorbide Mononitrate (Isosorbide Mononitrate ER) 30 Mg Tab.er.24h, 0.5 TAB PO DAILY 06/04/24 Rosuvastatin Calcium (Rosuvastatin Calcium) 10 Mg Tablet, 10 MG PO DAILY, TAB 06/04/24 Cholecalciferol (Vitamin D3) (Vitamin D3) 125 Mcg (5000 Unit) Tablet, 125 MCG PO BID, TAB 08/12/23 Vitamin B Complex & Vit C No.3 (B Complex with Vitamin C) 15-10-300 Capsule, 1 EACH PO DAILY, CAP 08/12/23 Ubidecarenone (Co Q-10) 100 Mg Capsule, 200 MG PO BID, CAP 06/08/23 Trazodone HCl (Trazodone HCl) 100 Mg Tablet, 100 MG PO HS, TAB 06/08/23 Bupropion HCl (Bupropion Xl) 150 Mg Tab.er.24h, 150 MG PO DAILY, TAB 06/08/23 Losartan Potassium (Losartan Potassium) 50 Mg Tablet, 50 MG PO DAILY, TAB 06/08/23 Hydrochlorothiazide (Hydrochlorothiazide) 12.5 Mg Tablet, 12.5 MG PO DAILY, TAB 06/08/23 Escitalopram Oxalate (Escitalopram Oxalate) 20 Mg Tablet, 20 MG PO DAILY, TAB 06/08/23 Discontinued Reported Medications Levothyroxine Sodium (Levothyroxine) 125 Mcg Capsule, 187.5 MCG PO ACBKFST, CAP TUE/Tue06/08/23 Rosuvastatin Calcium (Rosuvastatin Calcium) 5 Mg Tablet, 5 MG PO DAILY, TAB 08/12/23 Aspirin (ASPIRIN 81 MG ECTAB) 81 Mg Ectab, 81 MG PO DAILY, TAB.EC 06/08/23 NEEMA VALIENTE MD Jun 06, 2024 14:04
--- NOTE | 2024-06-06 14:50 | NUR ---
D/C PAPERWORK REVIEWED WITH PATIENT. PATIENT VERBALIZED UNDERSTANDING OF D/C. VERBAL REPORT CALLED TO [facility]. FACILITY VAN TO [facility]ERRULER
== END 2024-06-06 16:30 ==
LOC: EDH 17:39 → EDHIP 19:42 → INTOOBSV 19:42 → 4CH 06-04 02:10
PROVIDERS: ADMIT Internal Medicine; ATTEND Internal Medicine
DX: S82.111A Displaced fracture of right tibial spine, initial encounter for closed fracture (principal); M25.461 Effusion, right knee; I12.9 Hypertensive chronic kidney disease with stage 1 through stage 4 chronic kidney disease, or unspecified chronic kidney disease; N18.31 Chronic kidney disease, stage 3a; F32.1 Major depressive disorder, single episode, moderate; F13.20 Sedative, hypnotic or anxiolytic dependence, uncomplicated; I25.10 Atherosclerotic heart disease of native coronary artery without angina pectoris; I70.203 Unspecified atherosclerosis of native arteries of extremities, bilateral legs; E03.9 Hypothyroidism, unspecified; E66.01 Morbid (severe) obesity due to excess calories; E78.2 Mixed hyperlipidemia; N39.46 Mixed incontinence; K58.0 Irritable bowel syndrome with diarrhea; W01.0XXA Fall on same level from slipping, tripping and stumbling without subsequent striking against object, initial encounter; Y93.01 Activity, walking, marching and hiking; Y92.89 Other specified places as the place of occurrence of the external cause; Y99.8 Other external cause status; Z68.43 Body mass index [BMI] 50.0-59.9, adult; Z79.82 Long term (current) use of aspirin; Z87.891 Personal history of nicotine dependence; Z90.49 Acquired absence of other specified parts of digestive tract; Z79.899 Other long term (current) drug therapy
CPT/HCPCS: 99285; 80048; 85025; 81003; 36415; 73562; 73700; 96374; 96375; 73721; 73718; 96372 ×2; 96361; 97161; 97116 ×2; 97530; J2270; J2405; G0378 ×50; J1650 ×2